=== PATIENT | male | born 1960 | race Caucasian/White ===

== ENCOUNTER → 2016-12-20 | Day surgery (SDC) | payer OTHER ==
[~2016-12-20] MED LIST: BUPIVACAINE HCL PF 0.25% 30 ML VIAL ONE; KETOROLAC TROMETHAMINE 30 MG/ML (IVP) VIAL IV PUSH ONE; LACTATED RINGER'S 1000 ML INJ 1,000 ML ONE; MEPERIDINE HCL 50 MG/ML VIAL ONE; MIDAZOLAM HCL 2 MG/2 ML VIAL ONE; ONDANSETRON HCL 4 MG/2 ML VIAL IV PUSH ONE; PROPOFOL 200 MG/20 ML AMP IV ONE; ceFAZolin 2 GM PREMIX 50 ML ONE
--- NOTE | 2017-01-06 18:15 | MP ---
cc: MARY ANNE AGUILAR DATE OF SURGERY December 20, [address] Mary Anne Aguilar ADULT CARE MANAGER None. PREOPERATIVE DIAGNOSES 1. Left foot hallux ganglion. 2. Left foot hallux exostosis. POSTOPERATIVE DIAGNOSIS 1. Left foot hallux ganglion. 2. Left foot hallux exostosis. PROCEDURES PERFORMED 1. Left foot ganglion cyst removal. 2. Right foot exostectomy. PATHOLOGY SENT Ganglion cyst. ANESTHESIA General. HEMOSTASIS Pneumatic ankle tourniquet at 250 mmHg. ESTIMATED BLOOD LOSS Less than 5 ml. MATERIALS USED 3-0 Prolene COMPLICATIONS None. INDICATION Mr. Thompson is a patient well-known to me from the office. He has had multiple drainages of the ganglion cyst in the office, all of which proved to be temporary. At this time the patient is consented for removal of the cyst as well as removal of the bone spur of the contralateral hallux. The patient understands that both of these issues can be recurrent and there are no guarantees given with surgery. The consent was signed. The procedure was explained and all questions were answered. PROCEDURE DETAILS Under mild sedation the patient was brought into the operating room placed on the operating table in supine position. Following IV sedation a pneumatic ankle tourniquets were placed around both ankles. The feet were then scrubbed, prepped and draped in usual aseptic manner. Attention was directed to the left foot where an Esmarch bandage was used to the exsanguinate the left lower extremity, and attention was directed to the dorsal aspect of the hallux where an easily identifiable ganglion cyst was noted. A linear and longitudinal incision was created gently over the cyst, deepened through skin and subcutaneous tissue with care being taken to identify and retract any vital neurovascular structures and avoid fracturing the cyst. It was circumscribed and traced from its to its origin which appeared to be coming from the interphalangeal joint. It was removed as far distal and proximal at the stalk and it ____ en toto and sent to pathology for further evaluation. The area was flushed with copious amounts of sterile saline and reexamined to ensure that all remnants of the mass had been removed. The incision was then closed with 3-0 Prolene, had minimal tension noted at the surgical site. The pneumatic ankle tourniquet was released and a prompt hyperemic response to all digits of the left foot. Sterile dressings of Adaptic, 4x4s and Coban were applied. Attention was then directed to the right foot where an Esmarch bandage was used to exsanguinate the right lower extremity and pneumatic ankle tourniquet was inflated. Attention was directed to the dorsal aspect of the right hallux where there was easily palpable and identifiable bone spur at the distal phalanx dorsally. A linear and longitudinal ___ incision was created over that spur deepening through skin and subcutaneous tissue with care being taken to identify and retract any vital neuro or vascular structures. Once it was deepened to the level of bone a rongeur was used to remove the spur. It was noted to align in close proximity with the joint. There was some evidence of cartilage erosion on the proximal phalanx medial aspect. Once the spur was removed in full, a thin layer of bone wax was applied to the cancellus bleeding bone. The area was gently flushed and skin was closed with 3-0 Monocryl subcutaneously and 3-0 Prolene at the skin. There was minimal tension noted at the skin closure line. The pneumatic ankle tourniquet was released. There was a prompt hyperemic response to all digits of the right foot. A sterile dressing of Adaptic, 4x4s, Keith and Coban was applied. 5 cc of 0.5% Marcaine plain were injected around both digits for a total of 10 cc. The patient tolerated the procedure and the anesthesia well. He will recover in the PACU for a period of time before being discharged home with written and oral postoperative instructions. Mary Anne HALL/KK /5:04 PM /5:51 PM
== END | disposition home or self-care (01) ==
LOC: ESDC 06:19
PROVIDERS: ATTEND Podiatrist Foot & Ankle Surgery
DX: M67.472 Ganglion, left ankle and foot (principal); M25.774 Osteophyte, right foot
CPT/HCPCS: 01470; 01480; 28090; 28288; 88304; J0690; J1885; J2175; J2250; J2405; J3010; J7120